=== PATIENT | female | born 1985 | race Caucasian/White ===

== ENCOUNTER 2024-05-07 15:49 | Emergency (ER) | payer MEDICAID, SELFPAY ==
[2024-05-07 15:50] VITALS: BMI 19.0
--- NOTE | 2024-05-07 16:08 | PD.EDSKIN ---
ED Skin Abcess FB-RME/HPI General Chief complaint: Skin/Abscess/Foreign Body Stated complaint: RASH ON FACE, NEED PAPER FOR LONGTERM Time Seen by Provider: 05/07/24 15:52 Source: patient, RN notes reviewed and old records reviewed Arrival date/time: 05/07/24 15:49 Mode of arrival: ambulatory Limitations: no limitations RME / HPI RME / HPI narrative: 38yof presents to ED for 1-week history of chin rash. Patient denies new soaps, detergents, foods or medications. No tongue/throat swelling, sob or n/v reported. No medications or treatments since symptom onset. Related Data Home Medications ?Medication ?Instructions ?Recorded ?Confirmed alprazolam 2 mg tablet 2 mg PO TID 12/03/23 12/03/23 guanfacine 4 mg tablet,extended 4 mg PO BID 12/03/23 12/03/23 release 24 hr Previous Rx's ?Medication ?Instructions ?Recorded hydrocortisone 2.5 % topical cream 1 applic topical BID PRN rash #20 05/07/24 grams Allergies Allergy/AdvReac Type Severity Reaction Status Date / Time No Known Allergies Allergy Verified 05/07/24 15:51 Review of Systems Review of Systems Systems Reviewed: All systems reviewed, normal except as documented Constitutional Constitutional: Denies chills and Denies fever(s) Integumentary/Breasts Skin/Breast: Denies pruritus, Reports rash and Denies skin pain Past Medical History Past Medical History PSYCHO/SOCIAL: Positive Attention Deficit Hyperactivity Disorder Surgical History SURGICAL: Positive Hysterectomy Social History SMOKING STATUS: Current every day smoker SUBSTANCE USE: does not use ALCOHOL: Former ED Exam General Limitations: Present no limitations General appearance: Present alert and in no apparent distress Head Head exam: Present atraumatic and normocephalic Eye Eye exam: Present normal appearance, PERRL and EOMI ENT ENT exam: Present normal exam and mucous membranes moist Neck Neck exam: Present normal inspection and full ROM Chest Chest inspection: Present normal inspection and symmetric chest wall rise Respiratory Respiratory exam: Present normal lung sounds bilaterally; Absent respiratory distress Cardiovascular Cardiovascular exam: Present regular rate and normal rhythm Extremities Exam Extremities exam: Present normal inspection and full ROM Neurological Exam Neurological exam: Present alert and oriented X3 Psychiatric Psychiatric exam: Present normal affect and normal mood Skin Skin exam: Present other (Faint dime sized area of erythema to right chin. No induration, fluctuance or drainage) Course Quality Measures none Vital Signs Vital signs: Vital Signs Temperature 98.3 F 05/07/24 16:15 Pulse Rate 80 05/07/24 16:15 Respiratory Rate 19 05/07/24 16:15 Blood Pressure 119/71 05/07/24 16:15 Pulse Oximetry (%) 99 05/07/24 16:15 Oxygen Delivery Method Room Air 05/07/24 16:15 Skin / Abscess / Foreign Body MDM Narrative MDM Narrative:: 38yof presents to ED for 1-week history of chin rash. Patient denies new soaps, detergents, foods or medications. No tongue/throat swelling, sob or n/v reported. No medications or treatments since symptom onset. Will rx topical steroid for small affected area of mild dermatitis. No evidence of infection. Stable for dc, RTED precautions given. Patient data External records reviewed:: [facility] previous records (01/02/24 ED visit for alcohol withdrawal seizure) Clinical information provided by:: patient Social determinants that could affect healthcare access:: housing Patient has the following chronic illnesses:: ADHD How is presenting disease/condition affected by chronic disease/condition?: uneffected by Evaluation data The following diagnostics were reviewed and interpreted by me:: other (specify) (none) Lab and/or radiology exams considered but not ordered:: none Interpretation Summary: na Medications / Prescriptions Medications or Prescriptions considered but not ordered:: no antibiotics recommended at this time Medication administrations:: none Consultations Consultation(s) initiated? (list below): No Diagnosis Skin/Abscess Differential Diagnosis: abscess of skin or subcutaneous tissue, urticaria, herpes zoster, cellulitis, eczema and contact dermatitis Most likely diagnosis given after review of the tests above:: dermatitis Admission Indicated Admission indicated?: not indicated Admission Request Was there a request for admission?: No Disposition Plan Disposition Plan: Discharge Discharge Attestation Discharge Attestation: The patient and all family members were given an opportunity to ask questions and understood the discharge instructions. Discharge instructions specifically effects, indications for sooner follow up or return to the emergency department, and the expected course of current diagnosis. Patient condition: Stable Discharge Plan Plan Patient Disposition: HOME (Self Care) Patient condition on transfer: Stable Prescriptions/Referrals Prescriptions/Med Rec: New hydrocortisone 2.5 % cream 1 applic topical BID PRN (Reason: rash) Qty: 20 0RF No Action alprazolam 2 mg tablet 2 mg PO TID Patient Comments: TAKE 1 TABLET BY MOUTH THREE TIMES A DAY guanfacine 4 mg tablet extended release 24 hr 4 mg PO BID Patient Comments: TAKE 1 TABLET BY MOUTH TWICE A DAY Problem List Clinical Impression: Facial rash Patient/Caregiver Discharge Instructions Education Materials: ED Dermatitis Non Specific Rash Additional Instructions: Patient medically cleared to stay in jail. Rash does not appear contagious. Patient may apply steroid cream as needed. Print Language: Hungarian Stand Alone Forms: Kylie Award Info., Patient Portal Info Letter PA/NEWSPAPER DELIVERY COUNSELOR Supervising Physician PA/NEWSPAPER DELIVERY COUNSELOR Supervising Physician: Pat
[2024-05-07 16:15] VITALS: BP 119/71; PULSE 80; RESP 19; TEMP 36.8; O2SAT 99
== END 2024-05-07 16:22 | disposition home or self-care (01) ==
PROVIDERS: Emergency Provider Emergency Medicine
DX: R21 Rash and other nonspecific skin eruption (principal)
CPT/HCPCS: 99281

== ENCOUNTER 2024-06-05 07:04 | Emergency (ER) | payer MEDICAID, SELFPAY ==
[2024-06-05 07:12] VITALS: BP 114/63; PULSE 85; RESP 16; TEMP 36.5; O2SAT 99; BMI 18.6
[2024-06-05 08:16] LABS: Strep A Rapid Negative (Negative)
--- NOTE | 2024-06-05 08:30 | PD.EDURI ---
Upper Respiratory Inf. RME/HPI General Chief Complaint: Flu Like Symptoms Stated Complaint: FLU SYMPTOMS SINCE LAST NIGHT Time Seen by Provider: 06/05/24 07:09 Source: patient Arrival date/time: 06/05/24 07:04 This is a 38y old f here with complaints of URI symptoms for 1days. +fever, cough, rhinnorea. No chest pain, no wheezing. Mode of arrival: ambulatory Related Data Home Medications ?Medication ?Instructions ?Recorded ?Confirmed alprazolam 2 mg tablet 2 mg PO TID 12/03/23 12/03/23 guanfacine 4 mg tablet,extended 4 mg PO BID 12/03/23 12/03/23 release 24 hr Previous Rx's ?Medication ?Instructions ?Recorded hydrocortisone 2.5 % topical cream 1 applic topical BID PRN rash #20 05/07/24 grams acetaminophen 325 mg tablet (Pain 650 mg (2 x 325 mg) PO QID PRN 06/05/24 Reliever (acetaminophen)) fever or pain #20 tabs cephalexin 500 mg capsule 500 mg PO TID 5 days #15 caps 06/05/24 oseltamivir 75 mg capsule (Tamiflu) 75 mg PO BID 5 days #10 caps 06/05/24 Allergies Allergy/AdvReac Type Severity Reaction Status Date / Time No Known Allergies Allergy Verified 06/05/24 07:07 Review of Systems Review of Systems Systems Reviewed: All systems reviewed, normal except as documented Narrative Review of Systems: Gen: +fever, no chills, no weight loss EYES: No discharge, no visual changes, no pain HEENT: No ear pain, +congestion, + sore throat PULM: No shortness of breath, + cough, no congestion CV: No chest pain, no dyspnea on exertion, no palpitations GI: No nausea, no vomiting, no diarrhea, no pain, no constipation : No frequency, no urgency,? no dysuria Musc/skel: No joint pain, no back pain Skin: No rash? Psyc: No hallucinations, no depression Heme/Lymph: No easy bleeding or bruising tendencies Neuro: No weakness, no headache ED Exam Narrative Physical exam: General: Sittiing in Exam table in no acute distress, answering questions appropriately HENT: normocephalic, atraumatic, EOMI, PERRLA, moist mucous membranes Chest: chest wall is nontender Cardiac: regular rate and rhythm, normal S1 and S2, no murmurs, rubs, or gallops, capillary refill ?2 seconds Pulmonary: clear to auscultation bilaterally, no wheezing, crackles, or rhonchi Abdominal: active bowel sounds, soft, nontender, nondistended Neuro: A&OX3, CN II-XII intact, sensation grossly intact bilaterally in UE and LE. Skin: no rashes, no ecchymosis Ext: no lower extremity edema Course Quality Measures none Orders Category Date Time Status Bedside Influenza A&B Antigen Test NOW Care 06/05/24 07:22 Completed Strep A Rapid Stat Lab 06/05/24 07:30 Completed Ibuprofen Tab [Motrin Tab] Med 06/05/24 07:23 Discontinued 600 mg PO Q6HR PRN Vital Signs Vital signs: Vital Signs Temperature 97.7 F 06/05/24 07:12 Pulse Rate 85 06/05/24 07:12 Respiratory Rate 16 06/05/24 07:12 Blood Pressure 114/63 06/05/24 07:12 Pulse Oximetry (%) 99 06/05/24 07:12 Oxygen Delivery Method Room Air 06/05/24 07:12 Upper Respiratory Infection MDM Narrative MDM Narrative:: Adult viral syndrome. The patient is young, healthy, and is not a patient that is at high risk for developing influenza complications.? Patient is non-toxic appearing, appears to be well-hydrated and is breathing comfortably, without respiratory distress. Doubt pneumonia given lungs CTAB. Patient is appropriate for outpatient management with anti-pyretics and supportive care. Patient is comfortable with plan. Patient to follow up with PMD in 2 days. Strict return to ED precautions given. ?Patient verbalized understanding. Patient data External records reviewed:: [facility] previous records Clinical information provided by:: patient Social determinants that could affect healthcare access:: none Patient has the following chronic illnesses:: none How is presenting disease/condition affected by chronic disease/condition?: no chronic disease Evaluation data The following diagnostics were reviewed and interpreted by me:: other (specify) Lab and/or radiology exams considered but not ordered:: none Interpretation Summary: none Medications / Prescriptions Medications or Prescriptions considered but not ordered:: none Medication administrations:: Medication Administration History Discontinued Medications Ibuprofen (Ibuprofen Tab 600 Mg Tablet) 600 mg PO Q6HR PRN PRN Reason: PAIN OR FEVER > 101 Stop: 07/05/24 07:22 all medications administered and effective Consultations Consultation(s) initiated? (list below): No Diagnosis Upper Respiratory Differential Diagnosis: viral infection Most likely diagnosis given after review of the tests above:: Viral infection Admission Indicated Admission indicated?: not indicated Explain why admission is indicated or not indicated:: none Admission Request Was there a request for admission?: No Disposition Plan Disposition Plan: Discharge Discharge Attestation Discharge Attestation: The patient and all family members were given an opportunity to ask questions and understood the discharge instructions. Discharge instructions specifically effects, indications for sooner follow up or return to the emergency department, and the expected course of current diagnosis. Patient condition: Stable Discharge Plan Plan Patient Disposition: HOME (Self Care) Prescriptions/Referrals Prescriptions/Med Rec: New acetaminophen [Pain Reliever (acetaminophen)] 325 mg tablet 650 mg PO QID PRN (Reason: fever or pain) Qty: 20 0RF oseltamivir [Tamiflu] 75 mg capsule 75 mg PO BID 5 Days Qty: 10 0RF cephalexin 500 mg capsule 500 mg PO TID 5 Days Qty: 15 0RF No Action hydrocortisone 2.5 % cream 1 applic topical BID PRN (Reason: rash) Qty: 20 0RF alprazolam 2 mg tablet 2 mg PO TID Patient Comments: TAKE 1 TABLET BY MOUTH THREE TIMES A DAY guanfacine 4 mg tablet extended release 24 hr 4 mg PO BID Patient Comments: TAKE 1 TABLET BY MOUTH TWICE A DAY Referrals: Fabian Kirkpatrick MD [Primary Care Provider] - In 1 week Problem List Clinical Impression: Viral infection Patient/Caregiver Discharge Instructions Discharge Activity: activity as tolerated Education Materials: ED Viral Syndrome (Adult) Additional Instructions: Please alternate between Tylenol and ibuprofen for fever control. Advised to increase hydration, warm tea and chicken rice soup can stereotyper helper for throat pain. Please follow-up with your clinic 2-3-day follow-up. If you develop any type of respiratory distress or change in condition please go immediately to nearest emergency department Print Language: Colombian Stand Alone Forms: Kylie Award Info., Patient Portal Info Letter PA/TECHNICAL STAFF ASSISTANT Supervising Physician PA/GERALDO Supervising Physician: Dr Cantrell
== END 2024-06-05 08:43 | disposition home or self-care (01) ==
PROVIDERS: Nurse Practitioner Primary Care; Emergency Provider Emergency Medicine; PCP Family Medicine
DX: B34.9 Viral infection, unspecified (principal)
CPT/HCPCS: 87400; 87651; 99283

== ENCOUNTER 2024-06-18 03:21 | Emergency (ER) | payer MEDICAID, SELFPAY ==
[2024-06-18 03:26] VITALS: BP 93/59; PULSE 82; RESP 17; TEMP 36.7; O2SAT 99; BMI 20.1
--- NOTE | 2024-06-18 03:43 | PD.EDFMALE ---
ED Female Urogenital RME/HPI General Chief complaint: Urogenital-Female Stated complaint: PAIN IN URINATION Time Seen by Provider: 06/18/24 03:28 Source: patient Arrival date/time: 06/18/24 03:21 39-year-old female with no known medical history presents to the emergency room with a chief complaint of dysuria x 2 days Mode of arrival: ambulatory Limitations: no limitations Related Data Home Medications ?Medication ?Instructions ?Recorded ?Confirmed alprazolam 2 mg tablet 2 mg PO TID 12/03/23 12/03/23 guanfacine 4 mg tablet,extended 4 mg PO BID 12/03/23 12/03/23 release 24 hr Previous Rx's ?Medication ?Instructions ?Recorded hydrocortisone 2.5 % topical cream 1 applic topical BID PRN rash #20 05/07/24 grams acetaminophen 325 mg tablet (Pain 650 mg (2 x 325 mg) PO QID PRN 06/05/24 Reliever (acetaminophen)) fever or pain #20 tabs nitrofurantoin 100 mg PO Q12H 5 days #10 caps 06/18/24 monohydrate/macrocrystals 100 mg capsule (Macrobid) Allergies Allergy/AdvReac Type Severity Reaction Status Date / Time No Known Allergies Allergy Verified 06/05/24 07:07 Review of Systems Review of Systems Systems Reviewed: All systems reviewed, normal except as documented Constitutional Constitutional: Reports system reviewed and no additional complaints, except as documented, Denies fatigue, Denies fever(s), Denies headache(s) and Denies weakness Eyes Eyes: Reports system reviewed and no additional complaints, except as documented, Denies blurry vision and Denies change in vision ENT Ears, Nose, Mouth, and Throat: Reports system reviewed and no additional complaints, except as documented, Denies otalgia, Denies headache(s), Denies nasal congestion, Denies throat swelling and Denies vertigo Cardiovascular Cardiovascular: Reports system reviewed and no additional complaints, except as documented, Denies chest pain, Denies dyspnea and Denies dyspnea on exertion Respiratory Respiratory: Reports system reviewed and no additional complaints, except as documented, Denies chest congestion, Denies cough, Denies dyspnea, Denies dyspnea on exertion and Denies wheezing Gastrointestinal Gastrointestinal: Reports system reviewed and no additional complaints, except as documented, Denies abdominal pain, Denies cramping, Denies nausea and Denies vomiting Genitourinary Genitourinary: Reports system reviewed and no additional complaints, except as documented and Reports dysuria Musculoskeletal Musculoskeletal: Reports system reviewed and no additional complaints, except as documented and Denies back pain Integumentary/Breasts Skin/Breast: Reports system reviewed and no additional complaints, except as documented and Denies wounds Neurologic Neurologic: Reports system reviewed and no additional complaints, except as documented, Denies confusion, Denies headache(s), Denies lack of coordination, Denies vertigo and Denies weakness Psychiatric Psychiatric: Reports system reviewed and no additional complaints, except as documented, Denies anxiety, Denies confusion, Denies depression, Denies paranoia, Denies suicidal ideation and Denies tactile hallucinations Endocrine Endocrine: Reports system reviewed and no additional complaints, except as documented and Denies fatigue Hematologic/Lymphatic Hematologic/Lymphatic: Reports system reviewed and no additional complaints, except as documented and Denies lymphadenopathy Allergic/Immunologic Allergic/Immunologic: Reports system reviewed and no additional complaints, except as documented, Denies throat swelling, Denies urticaria and Denies wheezing Past Medical History Past Medical History NEUROLOGIC: Negative Neurological Disorders or Seizures CARDIAC: Negative Cardiac Disorders or Congestive Heart Failure RESPIRATORY: Positive Asthma, Smoking, Smoking Cessation Counseling, Smoking Exposure and Tobacco Use; Negative Chronic Obstructive Pulmonary Disease (COPD), Tuberculosis or Sleep Apnea GASTROINTESTINAL: Positive Gall Bladder Disease; Negative Gastrointestinal Disorders, Hepatitis or Colorectal Cancer GENITOURINARY: Positive Genitourinary Disorders and Kidney Stones; Negative Renal Disease or Prostate Cancer REPRODUCTIVE: Positive Fibroids (s/p SREEDHAR-BSO) and Previous Pregnancies; Negative Breast Cancer or Testicular Cancer MUSCULOSKELETAL: Positive Musculoskeletal Disorders, Arthritis and Scoliosis; Negative Bone Cancer ENDOCRINE: Negative Endocrine Disorders, Diabetes Mellitus Type 1, Diabetes Mellitus Type 2 or Hypothyroidism HEMATOLOGIC: Positive Blood Disorders and Anemia; Negative Sickle Cell Disease or Clotting Problems PSYCHO/SOCIAL: Positive Recreational Drug Use, Depression, Anxiety and Attention Deficit Hyperactivity Disorder OTHER HISTORY: Positive Falls and Chicken Pox; Negative Hospitalization, Autoimmune Disease, Down Syndrome, Developmental Delay, Shingles, Blood Transfusions, Anesthesia Reactions, Organ Transplant, Chemotherapy, Radiation Therapy, Hyperbaric Therapy, MRSA, VRSA, Vancomycin-Resistant Enterococci, Human Immunodeficiency Virus (HIV), Measles, Mumps, Rubella ([place] Measles), Pertussis, Clostridium Difficile, Breast Cancer, Cervical Cancer, Colorectal Cancer, Lung Cancer, Ovarian Cancer, Prostate Cancer or Testicular Cancer Family History FAMILY HISTORY: Positive Family Respiratory Disorders, Family Cardiac Disorders and Family Cancer; Negative Family Psychiatric Problems, Family Gastrointestinal Problems, Family Surgery or Family Anesthesia Reaction Surgical History SURGICAL: Positive Hysterectomy and Tubal Ligation; Negative Section or Organ Transplant Social History SMOKING STATUS: Current every day smoker SUBSTANCE USE: does not use OCCUPATION: Not currently employed ED Exam General Limitations: Present no limitations General appearance: Present alert and in no apparent distress Head Head exam: Present atraumatic Eye Eye exam: Present normal appearance, PERRL and EOMI ENT ENT exam: Present normal exam, normal oropharynx and mucous membranes moist Neck Neck exam: Present normal inspection, full ROM and trachea midline Chest Chest inspection: Present normal inspection and symmetric chest wall rise Respiratory Respiratory exam: Present normal lung sounds bilaterally Cardiovascular Cardiovascular exam: Present regular rate, normal rhythm and normal heart sounds Abdominal Exam Abdominal exam: Present soft and normal bowel sounds; Absent distention, tenderness, guarding, rebound or rigidity Abdominal tenderness: Absent RUQ, RLQ, LUQ or LLQ Extremities Exam Extremities exam: Present normal inspection and full ROM Back Exam Back exam: Present normal inspection and full ROM Neurological Exam Neurological exam: Present alert, oriented X3 and CN II-XII intact Psychiatric Psychiatric exam: Present normal affect and normal mood Skin Skin exam: Present warm, dry, intact and normal color Course Quality Measures none Orders Category Date Time Status UA, C/S IF [Urinalysis, C/S if Indicated] Stat Lab 06/18/24 03:41 Completed Urine Culture Stat Lab 06/18/24 03:41 Received cefTRIAXone [Rocephin] 1,000 mg Med 06/18/24 04:12 Discontinued Lidocaine 1% 20 ml [Xylocaine 1% 20 ML] 2.1 ml IM X1 Vital Signs Vital signs: Vital Signs Temperature 98.0 F 06/18/24 03:26 Pulse Rate 82 06/18/24 03:26 Respiratory Rate 17 06/18/24 03:26 Blood Pressure 93/59 L 06/18/24 03:26 Pulse Oximetry (%) 99 06/18/24 03:26 Oxygen Delivery Method Room Air 06/18/24 03:26 O2 saturation 99% within normal limits Urogenital - Female MDM Narrative MDM Narrative:: 39-year-old female with no known medical history presents to the emergency room with a chief complaint of dysuria x 2 days Patient is hemodynamically stable and nontoxic-appearing Patient denies any nausea vomiting vaginal discharge vaginal bleeding abdominal pain or any other signs and symptoms and states she is just here because she has pain when she urinates. UA was completed and shows a urinary tract infection. A shot of Rocephin was given and oral antibiotics were sent to the patient's pharmacy Patient was discharged and educated to follow-up with primary care provider and return to the emergency room for any evidence of worsening signs or symptoms Patient data External records reviewed:: [facility] previous records Clinical information provided by:: patient Social determinants that could affect healthcare access:: none Patient has the following chronic illnesses:: No chronic illnesses How is presenting disease/condition affected by chronic disease/condition?: no chronic disease Evaluation data The following diagnostics were reviewed and interpreted by me:: lab results and radiology exam(s) Lab and/or radiology exams considered but not ordered:: Labs and radiology exams considered and ordered Interpretation Summary: N/A Medications / Prescriptions Medications or Prescriptions considered but not ordered:: Medication given Medication administrations:: Medication Administration History Discontinued Medications Ceftriaxone Sodium 1,000 mg/ (Lidocaine HCl 2.1 ml) 0 mg IM X1 ONE Stop: 06/18/24 04:13 Last Admin: 06/18/24 04:33 Dose: 1,000 mg Documented By: CB Rx given Consultations Consultation(s) initiated? (list below): No Diagnosis Urogenital Female Differential Diagnosis: urinary tract infection, bacterial vaginosis, trichomoniasis, vaginitis and cystitis Most likely diagnosis given after review of the tests above:: Urinary tract infection Admission Indicated Admission indicated?: not indicated Admission Request Was there a request for admission?: No Disposition Plan Disposition Plan: Discharge Discharge Attestation Discharge Attestation: The patient and all family members were given an opportunity to ask questions and understood the discharge instructions. Discharge instructions specifically effects, indications for sooner follow up or return to the emergency department, and the expected course of current diagnosis. Patient condition: Stable Discharge Plan Plan Patient Disposition: HOME (Self Care) Disposition Comment: Stable Prescriptions/Referrals Prescriptions/Med Rec: New nitrofurantoin monohyd/m-cryst [Macrobid] 100 mg capsule 100 mg PO Q12H 5 Days Qty: 10 0RF Rx Instructions: must administer with a meal/food No Action hydrocortisone 2.5 % cream 1 applic topical BID PRN (Reason: rash) Qty: 20 0RF acetaminophen [Pain Reliever (acetaminophen)] 325 mg tablet 650 mg PO QID PRN (Reason: fever or pain) Qty: 20 0RF alprazolam 2 mg tablet 2 mg PO TID Patient Comments: TAKE 1 TABLET BY MOUTH THREE TIMES A DAY guanfacine 4 mg tablet extended release 24 hr 4 mg PO BID Patient Comments: TAKE 1 TABLET BY MOUTH TWICE A DAY Problem List Clinical Impression: Urinary tract infection Patient/Caregiver Discharge Instructions Education Materials: ED CYSTITIS Female Adult Additional Instructions: Please follow-up with your primary care provider in the next 24 to 48 hours. Your urinalysis shows a urinary tract infection. Antibiotics are sent to your pharmacy please pick them up and take them as indicated. For any evidence of worsening signs or symptoms please return to the emergency room immediately Print Language: Khmer Stand Alone Forms: Kylie Award Info., Patient Portal Info Letter PA/SENIOR MOBILE WEB DEVELOPER Supervising Physician PA/GERALDO Supervising Physician: Dr. Serrano
[2024-06-18 04:03] LABS: Collection Type, Urine Clean Catch
[2024-06-18 04:08] LABS: Bilirubin,Urine Negative (Negative); Blood,Urine 1+ (Negative); Clarity,Urine Turbid (Clear/Hazy); Color,Urine Lt-Yellow (Lt Yel-Yel); Culture Indicated,Urine Yes; Glucose, Urine Negative (Negative); Ketones,Urine Negative (Negative); Leukocyte Esterase,Urine Positive (Negative); Nitrite,Urine Negative (Negative); Protein,Urine Trace (Neg - Trace); RBC,Urine 54 /hpf (0-3); Specific Gravity,Urine 1.025 (1.001-1.035); Squamous Epithelial Cell,Urine 8 /hpf (0-5); Urobilinogen,Urine Negative mg/dL (0.0-1.0); WBC,Urine 408 /hpf (0-5)
[2024-06-18] MEDS: cefTRIAXone 1,000 MG, LIDOCAINE 1% 20 ML 2.1 ML IM (04:33)
== END 2024-06-18 04:36 | disposition home or self-care (01) ==
LOC: SERX 04:39
PROVIDERS: Nurse Practitioner Family; Emergency Provider Emergency Medicine; PCP Family Medicine
DX: N39.0 Urinary tract infection, site not specified (principal)
CPT/HCPCS: 81001; 87077; 87086; 87186; 96372; 99283; J0696; J3490

== ENCOUNTER 2024-12-27 06:15 | Emergency (ER) | payer MEDICAID, SELFPAY ==
[2024-12-27 06:17] VITALS: BMI 23.8
[2024-12-27 06:44] VITALS: BP 91/65; PULSE 52; RESP 18; TEMP 36.6; O2SAT 100
--- NOTE | 2024-12-27 07:01 | PD.EDRME ---
Rapid Medical Screening Exam RME Arrival date/time: 12/27/24 06:15 Chief Complaint: General Adult/Misc Complain Vital signs: Vital Signs Temperature 98 F 12/27/24 06:44 Pulse Rate 52 L 12/27/24 06:44 Respiratory Rate 18 12/27/24 06:44 Blood Pressure 91/65 12/27/24 06:44 Pulse Oximetry (%) 100 12/27/24 06:44 Oxygen Delivery Method Room Air 12/27/24 06:44 Pulse ox is 100% room air Vital signs reviewed by provider: Yes RME Narrative: 39-year-old female presents to the ED with a complaint of being cold. Note that the patient refuses or cannot contribute to the history as to why she is here.
--- NOTE | 2024-12-27 07:04 | EKG_ITS ---
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
[2024-12-27 07:40] LABS: Basophils # (Auto) 0.1 Thou/mm3 (0.0-0.2); Basophils % (Auto) 1 % (0-2.5); Eosinophils # (Auto) 0.6 Thou/mm3 (0.0-0.5); Eosinophils % (Auto) 9 % (0-10); Hematocrit 34.7 % (36.0-46.0); Hemoglobin 11.4 g/dL (12.0-16.0); Immature Granulocytes Auto 0.03 Thou/mm3 (0.00-0.00); Lymphocytes # (Auto) 2.4 Thou/mm3 (1.0-4.8); Lymphocytes % (Auto) 34 % (10-50); Mean Corpuscular HGB Conc 32.9 g/dl (31.0-37.0); Mean Corpuscular Hemoglobin 28.7 pg (25.0-35.0); Mean Corpuscular Volume 87 fL (80-100); Monocytes # (Auto) 0.6 Thou/mm3 (0.0-0.8); Monocytes % (Auto) 8 % (0-12); Neutrophils # (Auto) 3.5 Thou/mm3 (1.8-7.7); Neutrophils % (Auto) 48 % (37-80); Nucleated Red Blood Cell # 0.00 Thou/mm3 (0.00-0.00); Nucleated Red Blood Cell % 0 /100 WBC (0); Platelet Count 325 Thou/mm3 (140-440); RDW Standard Deviation 42.2 fL (36.4-46.3); Red Blood Count 3.97 Miln/mm3 (4.00-5.20); White Blood Count 7.2 Thou/mm3 (3.6-11.0)
[2024-12-27 07:55] LABS: HCG Titer if Positive Negative; INR 1.0 (0.9-1.3); Partial Thromboplastin Time 29.9 Seconds (22.0-36.0); Prothrombin Time 11.1 Seconds (9.0-12.2)
[2024-12-27 08:01] LABS: Ammonia < 10 uMol/L (11-32)
--- NOTE | 2024-12-27 08:12 | PC.NURSE ---
REMINDED PT WE NEED URINE SPECIMEN. PT SLEEPING IN LOBBY. SHE SAID SHE UNDERSTOOD.
[2024-12-27 08:15] LABS: Acetaminophen < 2.0 mcg/mL (10.0-20.0); Alanine Aminotransferase < 7 U/L (10-49); Albumin, Serum 4.3 gm/dL (3.5-5.0); Albumin/Globulin Ratio 1.6 (1.2-2.2); Alcohol, Blood Medical < 3.0 mg/dL (0-10.0); Alkaline Phosphatase 64 U/L (46-116); Anion Gap 9 (7-16); Aspartate Amino Transferase 12 U/L (0-34); BUN/Creatinine Ratio 10 Ratio (12-20); Bilirubin,Total 0.2 mg/dL (0.3-1.2); Blood Urea Nitrogen 8 mg/dL (9-23); Calcium 9.3 mg/dL (8.3-10.6); Calcium (Corrected) 9.3 mg/dL (8.5-10.1); Carbon Dioxide 27.3 mMol/L (20.0-31.0); Chloride 105 mMol/L (98-107); Creatinine (Component) 0.8 mg/dL (0.6-1.3); Estimated Creatinine Clearance 72.2 mL/min (>60); Globulin 2.7 gm/dL (2.3-3.5); Glucose 104 mg/dL (74-106); Magnesium 1.6 mg/dL (1.6-2.6); Osmolality,Calculated 279 (275-295); Potassium 4.1 mMol/L (3.4-5.1); Sodium 141 mMol/L (136-145); Thyroid Stimulating Hormone 2.18 uIU/mL (0.55-4.78); Total Protein 7.0 gm/dL (5.7-8.2); eGFR > 60 See Note
--- NOTE | 2024-12-27 09:19 | PC.NURSE ---
ASKED PT FOR URINE SPECIMEN; SECOND REQUEST. PT SAID OK .
[2024-12-27 10:05] LABS: Amphetamine/Methamp Scrn,U Negative (Negative); Barbiturate Screen,Urine Negative (Negative); Benzodiazepines Screen,Urine Positive (Negative); Benzoylecgonine Screen, Ur Negative (Negative); Fentanyl Screen,Urine Negative (Negative); Opiate Screen,Urine Positive (Negative); THC Screen,Urine Negative (Negative)
--- NOTE | 2024-12-27 11:19 | PD.EDRME ---
Rapid Medical Screening Exam RME Arrival date/time: 12/27/24 06:15 39-year-old female presents to the ED with a complaint of being cold. Note that the patient refuses or cannot contribute to the history as to why she is here. Chief Complaint: General Adult/Misc Complain Time Seen by Provider: 12/27/24 11:18 Vital signs: Vital Signs Temperature 98 F 12/27/24 06:44 Pulse Rate 52 L 12/27/24 06:44 Respiratory Rate 18 12/27/24 06:44 Blood Pressure 91/65 12/27/24 06:44 Pulse Oximetry (%) 100 12/27/24 06:44 Oxygen Delivery Method Room Air 12/27/24 06:44 RME Narrative: 39-year-old female presents to the ED with a complaint of being cold. Note that the patient refuses or cannot contribute to the history as to why she is here.
--- NOTE | 2024-12-27 11:33 | PC.NURSE ---
CALLED PT IN LOBBY AND OUTSIDE, NO ANSWER.
--- NOTE | 2024-12-27 11:44 | PC.NURSE ---
CALLED PT IN LOBBY AND OUTSIDE, NO ANSWER X 2.
--- NOTE | 2024-12-27 12:42 | PC.NURSE ---
CALLED PT IN LOBBY AND OUTSIDE, NO ANSWER X 3.
== END 2024-12-27 12:43 | disposition left against medical advice (07) ==
LOC: SERX 07:30
PROVIDERS: Emergency Provider Physician Assistant; PCP Family Medicine
DX: R68.83 Chills (without fever) (principal); R00.1 Bradycardia, unspecified; Z53.29 Procedure and treatment not carried out because of patient's decision for other reasons
CPT/HCPCS: 36415; 80053; 80307; 80320; 80329; 82140; 83735; 84443; 84703; 85025; 85610; 85730; 93005; 99283; G0480